=== PATIENT | female | born 2000 | race Caucasian/White ===

== ENCOUNTER → 2019-10-23 10:44 | Outpatient (BNVA) | payer BC, SELFPAY | PROVIDERS: Family Provider Internal Medicine; PCP Nurse Practitioner; Visit Provider Nurse Practitioner | DX: F33.1 Major depressive disorder, recurrent, moderate (principal); F41.1 Generalized anxiety disorder; F41.0 Panic disorder [episodic paroxysmal anxiety] | CPT/HCPCS: 99214 ==

== ENCOUNTER → 2020-01-15 08:18 | Outpatient (BNVA) | payer BC, SELFPAY | PROVIDERS: Family Provider Internal Medicine; PCP Nurse Practitioner; Visit Provider Nurse Practitioner | DX: F41.0 Panic disorder [episodic paroxysmal anxiety] (principal); F41.1 Generalized anxiety disorder; F33.1 Major depressive disorder, recurrent, moderate | CPT/HCPCS: 99213 ==

== ENCOUNTER 2020-05-29 10:33 | Outpatient (CLI) | payer BC, SELFPAY ==
--- NOTE | 2020-05-29 11:10 | XR_ITS ---
WS: [id number] Bilateral hips, AP and frog leg views, 05/29/2020 Clinical Data: BILATERAL GROIN/HIP PAIN, PAIN IN RIGHT HIP Comparison: None. Findings: Right hip: No fractures or dislocations are seen. The right hip shows no narrowing, sclerosis, erosion or fragme ntation. Adjacent right pelvis is unremarkable. The pubic symphysis is normal. The soft tissues are n ormal. Left hip: There are no fractures or dislocations. The left hip shows no narrowing, sclerosis, erosion or fragme ntation. The adjacent left pelvis is normal. The soft tissues are unremarkable. XR/XR hip BI 3-4V wo/w pel [id number] Impression: Negative bilateral hips.
== END 2020-05-29 10:34 | disposition home or self-care (01) ==
LOC: RADWPI 10:36
PROVIDERS: Family Provider Internal Medicine; PCP Internal Medicine; Visit Provider Physical Medicine & Rehabilitation
DX: M25.551 Pain in right hip (principal); R10.30 Lower abdominal pain, unspecified
CPT/HCPCS: 73522

== ENCOUNTER → 2023-06-07 16:38 | Outpatient (BNVA) | payer BC, MEDICAID, SELFPAY | PROVIDERS: Family Provider Internal Medicine; PCP Internal Medicine; Visit Provider Nurse Practitioner | DX: S92.355A Nondisplaced fracture of fifth metatarsal bone, left foot, initial encounter for closed fracture (principal); W19.XXXA Unspecified fall, initial encounter | CPT/HCPCS: 73630 ==

== ENCOUNTER 2023-06-08 15:44 | Outpatient (CLI) | payer BC, MEDICAID, SELFPAY | END 2023-06-08 15:45 | disposition home or self-care (01) | LOC: SPT 15:44 | PROVIDERS: Family Provider Internal Medicine; PCP Internal Medicine; Visit Provider Podiatrist Foot & Ankle Surgery | DX: Z46.89 Encounter for fitting and adjustment of other specified devices (principal); S99.199D Other physeal fracture of unspecified metatarsal, subsequent encounter for fracture with routine healing; S92.352D Displaced fracture of fifth metatarsal bone, left foot, subsequent encounter for fracture with routine healing; X58.XXXD Exposure to other specified factors, subsequent encounter | CPT/HCPCS: 97760; L4361 ==

== ENCOUNTER → 2023-06-22 14:01 | Outpatient (BNVA) | payer BC, SELFPAY | PROVIDERS: Family Provider Internal Medicine; PCP Internal Medicine; Visit Provider Podiatrist Foot & Ankle Surgery | DX: S99.192D Other physeal fracture of left metatarsal, subsequent encounter for fracture with routine healing; X58.XXXD Exposure to other specified factors, subsequent encounter | CPT/HCPCS: 73630 ==

== ENCOUNTER → 2023-07-06 15:03 | Outpatient (BNVA) | payer BC, SELFPAY | PROVIDERS: Family Provider Internal Medicine; PCP Internal Medicine; Visit Provider Podiatrist Foot & Ankle Surgery | DX: S99.192D Other physeal fracture of left metatarsal, subsequent encounter for fracture with routine healing; X58.XXXD Exposure to other specified factors, subsequent encounter | CPT/HCPCS: 73630 ==

== ENCOUNTER → 2023-07-24 14:43 | Outpatient (BNVA) | payer BC, MEDICAID, SELFPAY | PROVIDERS: Family Provider Internal Medicine; PCP Internal Medicine; Visit Provider Podiatrist Foot & Ankle Surgery | DX: S99.192D Other physeal fracture of left metatarsal, subsequent encounter for fracture with routine healing; X58.XXXD Exposure to other specified factors, subsequent encounter | CPT/HCPCS: 73630 ==

== ENCOUNTER → 2023-08-30 15:39 | Outpatient (BNVA) | payer BC, MEDICAID, SELFPAY | PROVIDERS: Family Provider Internal Medicine; PCP Internal Medicine; Visit Provider Podiatrist Foot & Ankle Surgery | DX: S99.192D Other physeal fracture of left metatarsal, subsequent encounter for fracture with routine healing (principal); X58.XXXD Exposure to other specified factors, subsequent encounter | CPT/HCPCS: 73630 ==

== ENCOUNTER → 2024-03-20 09:47 | Outpatient (BNVA) | payer BC, SELFPAY | PROVIDERS: Family Provider Internal Medicine; PCP Internal Medicine; Visit Provider Nurse Practitioner | DX: R82.5 Elevated urine levels of drugs, medicaments and biological substances (principal) | CPT/HCPCS: 80306 ==

== ENCOUNTER 2024-10-28 21:25 | Emergency (ER) | payer OTHER, SELFPAY ==
[2024-10-28 21:45] VITALS: BP 124/82; PULSE 115; TEMP 37.4; O2SAT 98
--- NOTE | 2024-10-28 21:49 | XRR_ITS ---
PROCEDURE INFORMATION: Exam: XR Chest Exam date and time: 10/28/2024 10:13 PM Age: 24 years old Clinical indication: Pain; Chest pressure; Additional info: Cp TECHNIQUE: Imaging protocol: Radiologic exam of the chest. Views: 1 view. COMPARISON: No relevant prior studies available. FINDINGS: Lungs: Unremarkable. No consolidation. Pleural spaces: Unremarkable. No pleural effusion. No pneumothorax. Heart/Mediastinum: Unremarkable. No cardiomegaly. Bones/joints: Unremarkable. XR/XR chest 1V portable [id number] IMPRESSION: No acute findings.
--- NOTE | 2024-10-28 21:50 | ECG_ITS ---
[facility] Test Date: 2024-10-28 Pat Name: Elise Gillespie Department: Room: Gender: Female [employer]: : 2000 Requested By: Tobin Spaulding Order Number: [id number] Bandar MD: Filipe Painter M.D. Measurements Intervals [place]pine Rate: 93 P: 55 NJ: 137 QRS: 61 QRSD: 84 T: 26 QT: 320 QTc: 399 Interpretive Statements SINUS RHYTHM POSSIBLE LEFT ATRIAL ENLARGEMENT [-0.1mV P-WAVE IN V1/V2] NONSPECIFIC T-WAVE ABNORMALITY No previous ECG available for comparison Electronically Signed On 11-02-2024 18:14:10 [employer] by Filipe Painter M.D. [email or web address]
[2024-10-28 22:37] LABS: Basophils # 0.1 10^3/uL (0.0-0.1); Basophils % 0.3 %; Hematocrit 45.8 % (36-47); Lymphocytes # 0.7 10^3/uL (0.8-4.8); Lymphocytes % 3.2 %; Mean Corpuscular HGB Conc 31.7 g/dL (30-55); Mean Corpuscular Hemoglobin 24.8 pg (27-33); Mean Corpuscular Volume 78.4 fl (85-98); Mean Platelet Volume 8.9 fL (7.4-10.4); Monocytes # 0.6 10^3/uL (0.2-0.9); Monocytes % 2.9 %; Neutrophils # 20.32 10^3/uL (1.8-7.7); Neutrophils % 93.1 %; Nucleated Red Blood Cells % 0 %; Platelet Count 358 10^3/cmm (157-399); Red Blood Count 5.84 10^6/uL (3.85-5.65); Red Cell Distribution Width 14.6 % (12.1-15.1); White Blood Count 21.85 10^3/uL (3.29-11.43)
[2024-10-28 22:56] LABS: Alanine Aminotransferase 10 U/L (0-33); Albumin Level 4.2 g/dL (3.5-5.2); Alkaline Phosphatase 120 U/L (35-105); Anion Gap 15.8 (5-19); Aspartate Amino Transferase 13 U/L (0-32); Blood Urea Nitrogen 8 mg/dL (6-20); Calcium 9.4 mg/dL (8.5-10.5); Carbon Dioxide 19 mmol/L (22-29); Chloride 105 mmol/L (98-107); Creatinine Clr Calc Pharmacy 188.8025; Globulin 3.6 g/dL (1.3-4.6); Glomerular Filtration Rate 120.8 mL/min (90-130); Glucose 108 mg/dL (65-115); Lipase 20 U/L (13-60); Osmolality Calculated 281 mOsm/kg (285-295); Potassium 3.8 mmol/L (3.5-5.1); Sodium 136 mmol/L (136-145); Total Bilirubin 0.5 mg/dL (0.15-1.2); Total Protein 7.8 g/dL (6.6-8.7)
== END 2024-10-29 01:41 | disposition left against medical advice (07) ==
PROVIDERS: Emergency Medicine; Emergency Provider Family Medicine
DX: R94.31 Abnormal electrocardiogram [ECG] [EKG] (principal); R07.89 Other chest pain
CPT/HCPCS: 36415; 71045; 80053; 83690; 85025; 93005; 99285